=== PATIENT | female | born 1975 | race Caucasian/White ===

== ENCOUNTER 2021-06-05 17:53 | Emergency (ER) | payer BC ==
[2021-06-05 18:10] VITALS: BP 137/77; PULSE 93; TEMP 98.2; BMI 25.4
[2021-06-05] MEDS ORDERED: DIPHTH,PERTUSS(ACELL),TET 0.5 ML DISP.SYRIN IM ONE ×2 (18:46→18:53)
== END 2021-06-05 19:46 | disposition home or self-care (01) ==
LOC: JERFT 17:53
PROC: 0HQFXZZ Repair Right Hand Skin, External Approach (ICD-10-PCS; principal; 2021-06-05)
PROC: 3E0234Z Introduction of Serum, Toxoid and Vaccine into Muscle, Percutaneous Approach (ICD-10-PCS; principal; 2021-06-05)
DX: S61.411A Laceration without foreign body of right hand, initial encounter (principal); S61.210A Laceration without foreign body of right index finger without damage to nail, initial encounter; S51.811A Laceration without foreign body of right forearm, initial encounter; W25.XXXA Contact with sharp glass, initial encounter
CPT/HCPCS: 73130-TC-RT-FY; 90715; 99283-25

== ENCOUNTER 2022-08-23 11:30 | Emergency (ER) | payer BC ==
[2022-08-23 11:33] VITALS: BP 159/93; PULSE 74; RESP 18; TEMP 97.6; BMI 25.3
[2022-08-23] MEDS ORDERED: MAG HYDROX/AL HYDROX/SIMETH 30 ML UNIT-DOSE CUP PO ONE (12:43)
[2022-08-23] MEDS ORDERED: FAMOTIDINE 20 MG TABLET PO ONE (12:43)
[2022-08-23] MEDS ORDERED: MAG HYDROX/AL HYDROX/SIMETH 30 ML UNIT-DOSE CUP ONE (13:23)
[2022-08-23] MEDS ORDERED: FAMOTIDINE 20 MG TABLET ONE (13:23)
[2022-08-23 13:40] LABS: BASO % 0.6 % (0-2.0); HEMATOCRIT 36.7 % (32.4-45.2); HEMOGLOBIN 12.6 GM/dL (10.7-15.3); LYMPH % 17.8 % (8-40); MCH 31.2 pg (25.7-33.7); MCHC 34.2 g/dl (32.0-36.0); MEAN CELL VOLUME 91.1 fl (80-96); MEAN PLT VOLUME 7.3 fl (7.5-11.1); MONO % 5.5 % (3.8-10.2); NEUT % 75.1 % (42.8-82.8); PLATELET COUNT 358 10^3/uL (134-434); RBC 4.03 M/mm3 (3.60-5.2); RDW 13.1 % (11.6-15.6); WHITE BLOOD COUNT 9.2 K/mm3 (4.0-10.0)
[2022-08-23 14:25] LABS: CALCIUM 9.2 mg/dL (8.5-10.1)
[2022-08-23 14:26] LABS: ALBUMIN 3.8 g/dl (3.4-5.0); BLOOD UREA NITROGEN 14.5 mg/dL (7-18)
[2022-08-23 14:29] LABS: CREATININE 0.7 mg/dL (0.55-1.3)
[2022-08-23 14:30] LABS: BILIRUBIN,TOTAL 0.3 mg/dL (0.2-1)
[2022-08-23 14:31] LABS: TOT PROT 7.3 g/dl (6.4-8.2)
== END 2022-08-23 19:37 | disposition home or self-care (01) ==
LOC: JER 11:30 → SUPCPDRO 11:30 → JER 19:37
DX: R51.9 Headache, unspecified (principal); R10.13 Epigastric pain
CPT/HCPCS: 36415; 70450-TC; 71046-TC-FY; 71275-TC; 74174-TC; 80053; 83690; 84484; 84703; 85025; 93005; 93010; 99284-25; Q9967